=== PATIENT | male | born 1985 | race Caucasian/White ===

== ENCOUNTER 2022-10-05 10:54 | Outpatient (AMB) | payer OTHER, SELFPAY ==
--- NOTE | 2022-10-05 10:56 | MHC.OFFVIS ---
Intake Vital Signs 10/05/22 10:57 Height 5 ft 8 in Weight 189 lb 2 oz BMI 28.8 BP 138/92 H Blood Pressure Location Rt brachial Position Sitting Pulse 82 Pulse Source Pulse Oximeter Pulse Oximetry (%) 97 Oxygen Delivery Method Room Air Intake Visit Reasons: 1yr follow up - LVM Intake Note: Patient presents for 1 year follow up. Patient states It's my one year follow up, no issues to report Allergies No Known Allergies Allergy (Verified 10/05/22 10:59) Medication List - Last Reconciled 10/05/22 by PAWAN Quigley lamotrigine 100 mg PO BID 90 days HPI HPI Comments History of Present Illness Details 37-yr-old male presents for f/u visit. Pt denies any significant interval medical changes. Pt denies any interval seizure activity. He is complaint with lamictal- tolerating well. He did not have labs drawn. No vision difficulty, no diplopia, no rashes, no mood changes. He is still working at [employer] in [employer] w/out difficulty. ? [facility] Surgical History No pertinent past surgical history Family History Mother COPD (chronic obstructive pulmonary disease) Father No problems noted. Social History (Updated 10/05/22 @ 11:00 by KUSUM Andres) Household Members: Friend(s) Alcohol intake: current Alcohol intake frequency: holidays/special occasions only Patient Tobacco Use Status: Former Tobacco user Cigarette Packs Per Day: 25 Years Smoked: quit 2 months ago (July) Current occupational status: employed Current occupation: [employer] Review of Systems Const All systems reviewed & are unremarkable except as noted in HPI and below Physical Exam Vital Signs: Last Vital Signs Pulse 82 10/05/22 10:57 BP 138/92 H 10/05/22 10:57 Pulse Ox 97 10/05/22 10:57 Oxygen Delivery Method Room Air 10/05/22 10:57 BMI result Body Mass Index 28.8 Const General: cooperative and no acute distress Orientation/consciousness: patient oriented x3 HEENT Head: Yes normocephalic Resp Effort & Inspection: normal respiratory effort and able to speak in complete sentences Neuro General: patient oriented x3, gait normal and CN's II-XI intact bilaterally Cognition (Neuro): normal cognition Motor exam (neuro): 5/5 motor strength present throughout Psych Appearance: grossly normal Mental Status: mental status grossly normal Speech and movement: Normal speech and movement present Affect: normal affect Attitude: cooperative Assessment & Plan Assessment & Plan (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 Will check CBC, CMP, Lamotrigine level- pt will do at [facility] labs- lab slips given to pt. Previous AED trials- Depakote- caused significant weight gain. f/u in 1 yr or sooner prn Orders: Orders Comprehensive Met. Panel Today G40.B09 - Juvenile myoclonic epilepsy, not intractable, without status epilepticus Complete Blood Count Auto Diff Today G40.B09 - Juvenile myoclonic epilepsy, not intractable, without status epilepticus Lamotrigine Lamictal Today G40.B09 - Juvenile myoclonic epilepsy, not intractable, without status epilepticus Medications: Refilled lamotrigine 100 mg PO BID 180 tabs 3RF 90 days Coding Level of Care Code Est Pt Level 3 (02379) Diagnoses Juvenile myoclonic epilepsy G40.B09
[2022-10-05 10:57] VITALS: BP 138/92; PULSE 82; O2SAT 97; BMI 28.8
== END 2022-10-05 11:30 | disposition home or self-care (01) ==
PROVIDERS: Visit Provider Nurse Practitioner Family
DX: G40.B09 Juvenile myoclonic epilepsy, not intractable, without status epilepticus (principal)
CPT/HCPCS: 99213

== ENCOUNTER → 2022-10-05 10:54 | Outpatient (BNVA) | payer OTHER, SELFPAY | PROVIDERS: Visit Provider Nurse Practitioner Family | DX: G40.B09 Juvenile myoclonic epilepsy, not intractable, without status epilepticus (principal) ==

== ENCOUNTER 2023-10-08 10:54 | Outpatient (AMB) | payer OTHER, SELFPAY ==
--- NOTE | 2023-10-08 11:12 | A.OFFVIS_ITS ---
Vital Signs 10/08/23 11:17 Height 5 ft 7 in Weight 195 lb BMI 30.5 BP 124/92 H Blood Pressure Location Rt brachial Position Sitting Pulse 84 Pulse Source Pulse Oximeter Pulse Oximetry (%) 98 Oxygen Delivery Method Room Air Intake Visit Reasons: 1yr follow up-LVM Intake Note: Patient presents for follow up Allergies No Known Allergies Allergy (Verified 10/08/23 11:17) Medication List - Last Reconciled 10/08/23 by PAWAN Quigley amlodipine 2.5 mg PO DAILY lamotrigine 100 mg PO BID 90 days HPI Comments Details: 38-yr-old male presents for f/u visit of seizure. Pt denies any significant interval medical changes, though states PCP is following his LFTs as they have been elevated- he is scheduled for hepatic US. He is planning to increase physical exercise routine. He denies any interval seizure. He is compliant w/ Lamictal. Last BUN/Breaker Up Machine Operator- WNL. Pt is wondering if he should have a sleep study, as he has been having snoring, excessive daytime sleepiness. He can easily fall asleep when inactive. He is active at work, works in the [employer] department at [employer]. He typically sleeps 6.5-7 hrs on work days. [facility] Surgical History No pertinent past surgical history Family History Mother COPD (chronic obstructive pulmonary disease) Father No problems noted. Social History Household Members: Friend(s) Alcohol intake: current Alcohol intake frequency: holidays/special occasions only Patient Tobacco Use Status: Former Tobacco user Cigarette Packs Per Day: 25 Years Smoked: quit 2 months ago (July) Current occupational status: employed Current occupation: [employer] Physical Exam Vital Signs: Last Vital Signs Pulse 84 10/08/23 11:17 BP 124/92 H 10/08/23 11:17 Pulse Ox 98 10/08/23 11:17 Oxygen Delivery Method Room Air 10/08/23 11:17 BMI result Body Mass Index 30.5 Const General: cooperative and no acute distress Orientation/consciousness: patient oriented x3 HEENT Other: Mallampati stage IV Resp Effort & Inspection: normal respiratory effort and able to speak in complete sentences Neuro General: patient oriented x3 Cranial nerves: Yes CN's II-XII intact bilaterally Cognition (Neuro): normal cognition Psych Appearance: grossly normal Mental Status: mental status grossly normal Speech and movement: Normal speech and movement present Affect: normal affect Attitude: cooperative Assessment & Plan Assessment & Plan (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 Previous AED trials- Depakote- caused significant weight gain. Pt advised to undergo HST to assess for sleep apnea- will f/u upon review. f/u in clinic in 1 yr or sooner prn Orders: Orders RT home sleep study 10/08/23 G47.19 - Other hypersomnia, G47.9 - Sleep disorder, unspecified, R06.83 - Snoring Medications: Refilled lamotrigine 100 mg PO BID 90 days 180 tabs 3RF Coding Level of Care Code Est Pt Level 4 (13525) Diagnoses Juvenile myoclonic epilepsy G40.B09 Sleep difficulties G47.9 Snoring R06.83 Excessive daytime sleepiness G47.19 Tyler Sleepiness Scale Questions Sitting and reading: high chance of dozing Watching TV: high chance of dozing Sitting inactive in a theater, movie etc.: would never doze As a passenger in a car for an hour without break: high chance of dozing Lying down in the afternoon when circumstances permit: high chance of dozing Sitting and talking to someone: would never doze Sitting quietly after lunch without alcohol: high chance of dozing In a car, while stopped for a few minutes in the traffic: would never doze ESS < 10: normal, ESS > 12: pathologic: 15
[2023-10-08 11:17] VITALS: BP 124/92; PULSE 84; O2SAT 98; BMI 30.5
== END 2023-10-08 12:21 | disposition home or self-care (01) ==
PROVIDERS: PCP Internal Medicine; Visit Provider Nurse Practitioner Family
DX: G40.B09 Juvenile myoclonic epilepsy, not intractable, without status epilepticus (principal); G47.9 Sleep disorder, unspecified; R06.83 Snoring; G47.19 Other hypersomnia
CPT/HCPCS: 99214

== ENCOUNTER → 2023-10-08 10:54 | Outpatient (BNVA) | payer OTHER, SELFPAY | PROVIDERS: PCP Internal Medicine; Visit Provider Nurse Practitioner Family | DX: G40.B09 Juvenile myoclonic epilepsy, not intractable, without status epilepticus (principal) ==

== ENCOUNTER → 2023-11-22 09:46 | Outpatient (REF) | payer OTHER, SELFPAY | LOC: HO.SL 09:46 | PROVIDERS: PCP Internal Medicine; Visit Provider Nurse Practitioner Family | DX: G47.30 Sleep apnea, unspecified (principal); G47.19 Other hypersomnia; R06.83 Snoring; G47.9 Sleep disorder, unspecified | CPT/HCPCS: 95806 ==

== ENCOUNTER → 2023-11-22 09:58 | Outpatient (BNV) | payer OTHER, SELFPAY | PROVIDERS: PCP Internal Medicine; Visit Provider Psychiatry & Neurology Neurology | DX: G47.33 Obstructive sleep apnea (adult) (pediatric) (principal) | CPT/HCPCS: 95806 ==

== ENCOUNTER → 2024-01-09 20:30 | Outpatient (REF) | payer OTHER, SELFPAY | LOC: HO.SL 20:30 | PROVIDERS: PCP Internal Medicine; Visit Provider Nurse Practitioner Family | DX: G47.33 Obstructive sleep apnea (adult) (pediatric) (principal); G47.34 Idiopathic sleep related nonobstructive alveolar hypoventilation; G40.B09 Juvenile myoclonic epilepsy, not intractable, without status epilepticus | CPT/HCPCS: 95811 ==

== ENCOUNTER → 2024-01-09 22:23 | Outpatient (BNV) | payer OTHER, SELFPAY | PROVIDERS: PCP Internal Medicine; Visit Provider Psychiatry & Neurology Neurology | DX: G47.33 Obstructive sleep apnea (adult) (pediatric) (principal); G47.34 Idiopathic sleep related nonobstructive alveolar hypoventilation | CPT/HCPCS: 95811 ==

== ENCOUNTER 2024-04-21 09:52 | Outpatient (AMB) | payer OTHER, SELFPAY ==
--- NOTE | 2024-04-21 10:01 | MHC.OFFVIS ---
Vital Signs 04/21/24 10:02 Height 5 ft 7 in Weight 190 lb BMI 29.8 BP 140/90 H Blood Pressure Location Rt brachial Position Sitting Pulse 79 Pulse Source Pulse Oximeter Pulse Oximetry (%) 95 Oxygen Delivery Method Room Air Intake Visit Reasons: Follow Up Intake Note: Patient presents for follow up. Sleep study done on 11/22/23. [employer] U[employer] Required: No Accompanied by: Self / Same As Patient Allergies No Known Allergies Allergy (Verified 10/08/23 11:17) HPI Comments Details: 38-yr-old male presents for f/u visit of CPAP compliance. Last seizure activity was at 15 years old grand mal seizure, and second at 16.5, he woke up in the kitchen, he bit his tongue, fell down, no urinary incontenince, eyes rolled in the back of his head, and he seized for seconds to a min, then transported to the ED. His mom witnessed the seizure activity. Titration of CPAP completed in Dec 2023, pressures adjusted to [id number]. MAUREEN Compliance Report Feb 20, 2024- April 21, 2024 >4 hour 98% and 6 hours and 58 min Leaks median 22% pressures are [id number] AHI 4 He denies any seizure like activity. His BP is elevated and was started on Amlodipine 5mg PO daily. He feels more refreshed in the mornings, uses his small mouthed mask which he really likes. He denies any significant interval medical changes, though states PCP will f/u with his LFTs and hepatic US. He is compliant w/ Lamictal 100mg PO BID. Labs were repeated this week. 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 He works very long hours at [employer]. He doesn't smoke or drink, he quit smoking cold turkey and is doing well. Mood, memory and diet is good. He washes his mask, changes his filters, and fills reservoir with water as needed. [facility] Surgical History No pertinent past surgical history Family History Mother COPD (chronic obstructive pulmonary disease) Father No problems noted. Social History Household Members: Friend(s) Alcohol intake: current Alcohol intake frequency: holidays/special occasions only Patient Tobacco Use Status: Former Tobacco user Cigarette Packs Per Day: 25 Years Smoked: quit 2 months ago (July) Current occupational status: employed Current occupation: [employer] Physical Exam Vital Signs: Last Vital Signs Pulse 79 04/21/24 10:02 BP 140/90 H 04/21/24 10:02 Pulse Ox 95 04/21/24 10:02 Oxygen Delivery Method Room Air 04/21/24 10:02 BMI result Body Mass Index 29.8 Const General: cooperative and no acute distress Orientation/consciousness: patient oriented x3 HEENT Other: Mallampati stage IV Resp Effort & Inspection: normal respiratory effort and able to speak in complete sentences Neuro General: patient oriented x3 Cranial nerves: Yes CN's II-XII intact bilaterally Cognition (Neuro): normal cognition Psych Appearance: grossly normal Mental Status: mental status grossly normal Speech and movement: Normal speech and movement present Affect: normal affect Attitude: cooperative Results Reviewed Results Reviewed: MAUREEN Compliance Report Feb 20, 2024- April 21, 2024 >4 hour 98% and 6 hours and 58 min Leaks median 22% pressures are [id number] AHI 4 Assessment & Plan Assessment & Plan (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, not intractable, without status epilepticus Category: Medical Qualifiers: Intractability: intractable Status epilepticus: without status epilepticus Qualified Code(s): G40.B19 - Juvenile myoclonic epilepsy, intractable, without status epilepticus (2) Sleep difficulties: Code(s): G47.9 - Sleep disorder, unspecified Category: Medical (3) Snoring: Code(s): R06.83 - Snoring Category: Medical (4) Excessive daytime sleepiness: Code(s): G47.19 - Other hypersomnia Category: Medical (5) Nocturnal hypoxemia: Code(s): G47.34 - Idiopathic sleep related nonobstructive alveolar hypoventilation Category: Medical Plan Continue Lamotrigene 100mg bid. Previous AED trials- Depakote- caused significant weight gain. MAUREEN Compliance is stressed Eczema / plaque Psoriasis on Tremfya every other month. F/u in clinic for MAUREEN / Seizure disoder in 6 months Patient Instructions: Sleep in a dark room with temperatures below 68 degrees, no devices in bed, may read in bed, diffuse essential oils. F/U with labs / LFTS, and Renal as needed, ROMAN titers are elevated per labs on phone jarrett. Monitor BP at home, BP is elevated. The number one modifiable RF for CV events is good bp control. Coding Level of Care Code Est Pt Level 4 (14811) Diagnoses Intractable juvenile myoclonic epilepsy without status epilepticus G40.B19 Intractability: intractable Status epilepticus: without status epilepticus Sleep difficulties G47.9 Snoring R06.83 Excessive daytime sleepiness G47.19 Nocturnal hypoxemia G47.34 Time Spent (min) 30
[2024-04-21 10:02] VITALS: BP 140/90; PULSE 79; O2SAT 95; BMI 29.8
--- OUTSIDE RECORDS SUMMARY | 2024-04-21 10:52 | XMS_ITS | Encounter Summary ---
Author Organization [facility] Address [address] [address] Phone Care Team Providers Care Telecommunications Engineer Name Role Phone Thomas Canchola MD Primary Care Provider + [phone] Reason for Visit * Reason Comments Hypertension Hypercalcemia Encounter Details Date Type Department Care Team (Latest Contact Info) Description 03/27/2024 1:15 PM EST Office Visit [facility] [address] [address] Maddy Jain ARNP [address] [phone] Hypercalcemia (Primary Dx); Hypertension Social History Tobacco Use Types Packs/Day Years Used Date Smoking Tobacco: Former Cigarettes Smokeless Tobacco: Never Tobacco Cessation:Counseling Given: Not Answered Alcohol Use Standard Drinks/Week Comments Yes 0 (1 standard drink = 0.6 oz pur e alcohol) Sex and Gender Information Value Date Recorded Sex Assigned at Not on file Legal Sex Male 1:42 PM EDT Gender Identity Not on file Sexual Orientation Not on file documented as of this encounter Last Filed Vital Signs Vital Sign Reading Time Taken Comments Blood Pressure 126/80 03/27/2024 1:15 PM EST Pulse 76 03/27/2024 1:15 PM EST Temperature - - Respiratory Rate - - Oxygen Saturation - - Inhaled Oxygen Concentration - - Weight 89.3 kg (196 lb 12.8 oz) 03/27/2024 1:15 PM EST Height - - Body Mass Index - - documented in this encounter Patient Instructions * Patient Instructions* Maddy Jain ARNP - 03/27/2024 1:15 PM EST Blood pressure monitoring education: Monitor home blood pressure values after sitting for 5 minutes with back and arm support. Keep a log. Bring your log and blood pressure cuff to your next visit. documented in this encounter Progress Notes * Maddy Jain ARNP - 03/27/2024 1:15 PM EST Images from the original note were not included. Patient Name: Juan C Mccray, Male Date of : 1985, 38 y.o. Date: 03/27/2024 History of Present Illness Mr. / Ms. Juan C Mccrya is a 38-year-old male with past medical history of seizure dx here for follow up for high blood pressure management. Home BP ranging 130-150/80s-90s, checked manually by a family member who is a nurse. Past Medical History Past Medical History: Diagnosis Date Epilepsy (HCC) Essential hypertension Past Surgical History History reviewed. No pertinent surgical history. Family History Family History Problem Relation Age of Onset Kidney disease Mother Social History Social History Tobacco Use Smoking status: Former Types: Cigarettes Smokeless tobacco: Never Substance Use Topics Alcohol use: Yes Review of Systems Constitutional: Negative for chills, fever, weight gain and weight loss. HENT: Negative for congestion and hearing loss. Eyes: Negative for blurred vision and impaired. Respiratory: Negative for cough and shortness of breath. Cardiovascular: Negative for chest pain and leg swelling. Gastrointestinal: Negative for abdominal pain, diarrhea, nausea, vomiting and poor appetite. Genitourinary: Negative for dysuria, flank pain, hematuria and urgency. Musculoskeletal: Negative. Skin: Negative for rash. Neurological: Positive for seizures. Negative for dizziness and headaches. Controlled on anti-seizure medication Psychiatric/Behavioral: Negative. Medication List Current Outpatient Medications Medication Sig Dispense Refill amLODIPine (NORVASC) 5 MG tablet Take 1 tablet (5 mg total) by mouth 1 (one) time each day 90 tablet 3 lamoTRIgine (LaMICtal) 100 MG tablet Take 100 mg by mouth in the morning and 100 mg in the evening. No current facility-administered medications for this visit. Allergy List No Known Allergies Physical Exam BP 126/80 Pulse 76 Wt 196 lb 12.8 oz (89.3 kg) Vitals reviewed. Constitutional: He is oriented to person, place, and time. He does not appear ill. No distress. HEENT: Mouth/Throat: Oropharynx is clear and moist. Eyes: Conjunctivae are normal. Neck: No JVD present. Cardiovascular: Normal rate and regular rhythm. No murmur heard.He exhibits no edema. Pulmonary/Chest: Effort normal and breath sounds normal. Abdominal: Soft. Bowel sounds are normal. Neurological: He is alert and oriented to person, place, and time. Skin: Skin is warm and dry. Psychiatric: He has a normal mood and affect. His behavior is normal. Judgment normal. Labs Chemistry Lab Units 01/17/24 1503 07/26/23 0000 10/16/22 1639 CREATININE mg/dL 0.82 0.96 0.9 BUN mg/dL 16 17 14 POTASSIUM mmol/L 5.1 4.5 4.6 SODIUM mmol/L 140 140 138 CO2 mmol/L 24 24 27 CHLORIDE mmol/L 101 -- 100 ALBUMIN g/dL 4.8 -- 4.9* EGFRNAFR -- 104 110 EGFR mL/min/1.73 115 -- -- HEMATOCRIT -- 45.2 -- HEMOGLOBIN -- 15.2 -- PLATELETS AUTO 10*3/UL -- 275 -- Bone Mineral Lab Units 01/17/24 1503 07/26/23 0000 01/12/23 1410 10/16/22 1639 CALCIUM mg/dL 9.8 10.0 -- 10.4 PHOSPHORUS mg/dL 3.7 -- -- 4.2 PTH pg/mL 50 -- 46 45 VITAMIN D NG/ML -- -- -- 24.9 Urine Lab Units 01/17/24 1503 07/26/23 0000 PROTEIN UR mg/dL 15.4 Negative Assessment & Plan 1. Hypercalcemia 2. Hypertension # HTN Blood pressure is sub-optimally controlled Increase Amlodipine from 2.5 mg to 5 mg QD Continue monitoring home BP and bring in reads to next visit Negative work-up for secondary causes of HTN No Edema Normal Renal function No proteinuria Low salt diet Avoid NSAIDs/Decongestant medication #Hypercalcemia Calcium WNL at 9.8 as of 01/17/2024 PTH remains WNL, 50 Calcium 10.4 10/16/22 ROMAN and Immunofixation WNL 11/14/2004 Vit D 1-25 WNL in the past PTH was not suppressed 45 10/16/22 Ionized calcium was normal 1.3 10/16/22 Hep B core ag, Hep C ab, HIV and RPR negative 03/29/2006 Urine alb/creatinine ratio WNL 06/29/22 Patient was not seen by Endocrinology for evaluation and management of suspected primary hyperPTH Orders Placed This Encounter amLODIPine (NORVASC) 5 MG tablet Return in about 3 months (around 06/24/2024) for Next scheduled follow-up with Rain for BP check. MILVIA Ledezma Cosigned by Vance Corbett MD at 03/27/2024 3:01 PM EST documented in this encounter Plan of Treatment Upcoming Encounters Date Type Department Care Team (Late st Contact Info) Description 06/26/2024 10:15 AM EDT Office Visit [facility] P.. [address] [address] Maddy Jain ARNP [address] [phone] documented as of this encounter Visit Diagnoses Diagnosis Hypercalcemia- Primary Hypertension documented in this encounter Care Teams Telecommunications Engineer Relationship Specialty Start Date End Date Thomas Canchola MD [address] [place] [address] PCP - General Internal Medicine 01/10/24 documented as of this encounter
--- OUTSIDE RECORDS SUMMARY | 2024-04-21 10:52 | XMS_ITS | Clinical Summary ---
Author Organization [facility] Address [address] [address] Phone Care Team Providers Care Proposition Player Name Role Phone Thomas Canchola MD Primary Care Provider + [phone] Allergies No known active allergies Medications lamoTRIgine (LaMICtal) 100 MG tablet Take 100 mg by mouth in the morning and 100 mg in the evening. Active amLODIPine (NORVASC) 5 MG tabletIndicatio ns:Hypertension Take 1 tablet (5 mg total) by mouth 1 (one) time each day 90 tablet 3 5 03/27/19 26 Active amLODIPine (NORVASC) 2.5 MG tabletIndicatio ns:Hypertension Take 1 tablet (2.5 mg total) by mouth 1 (one) time each day 30 tablet 11 4 03/27/19 25 Discontinu ed(Reorder (does not appear on AVS)) Active Problems Problem Noted Date Diagnosed Date Hypercalcemia 10/08/2022 Hypertension 10/08/2022 Encounters Date Type Department Care Team Description 03/27/2024 1:15 PM EST Office Visit [facility]. [address] [phone] Maddy Jain ARNP Hypercalcemia (Primary Dx); Hypertension from Last 3 Months Family History Medical History Relation Comments Kidney disease Mother Relation Status Comments Mother Social History Tobacco Use Types Packs/Day Years [...] on file Sexual Orientation Not on file Last Filed Vital Signs Vital Sign Reading Time Taken Comments Blood Pressure 126/80 03/27/2024 1:15 PM EST Pulse 76 03/27/2024 1:15 PM EST Temperature - - Respiratory Rate - - Oxygen Saturation 98% 01/10/2024 1:15 PM EST Inhaled Oxygen Concentration - - Weight 89.3 kg (196 lb 12.8 oz) 03/27/2024 1:15 PM EST Height - - Body Mass Index - - Plan of Treatment Upcoming Encounters Date Type Department Care Team ([facility] st Contact Info) Description 06/26/2024 10:15 AM EDT Office Visit [facility] [address] [phone] Maddy Jain ARNP [address] [place] [phone] Health Maintenance Due Date Last Done Comments Pneumococcal Vaccine: Pediat rics (0 to 5 Years) and At-Risk Patients (6 to 64 Years) (1 of 2 - PCV) 09/17/1991 Hepatitis B Vaccine (1 of 3 - 19+ 3-dose series) 09/16 Influenza Vaccine (#1) 2023 Insurance AETNA MEDICARE AETNA MEDICARE Care Teams Proposition Player Relationship Specialty Start Date End Date Thomas Canchola MD [address] [place] [address] PCP - General Internal Medicine 01/10/24
--- OUTSIDE RECORDS SUMMARY | 2024-04-21 10:52 | XMS_ITS | Clinical Summary ---
Author Organization [facility] Address [address] [id number] Care Team Providers Care Woodenware Assembler Name Role Phone Thomas Canchola MD Primary Care Provider [phone] Allergies No known active allergies Medications Medication Sig Dispensed Refills Start Date End Date Status lamoTRIgine (LaMICtal) 100 MG tablet 0 06/21/2021 Active tacrolimus (PROTOPIC) 0.1 % ointment 0 07/04/2021 Active triamcinolone (KENALOG) 0.1 % cream 0 06/28/2021 Active Active Problems Problem Noted Date Diagnosed Date Leukocytosis 07/21/2021 Tobacco use 07/21/2021 Social History Tobacco Use Types Packs/Day Years Used Date Smoking Tobacco: Every Day Cigarettes 1 Smokeless Tobacco: Never Alcohol Use Standard Drinks/Week Comments Yes 0 (1 standard drink = 0.6 oz pur e alcohol) rare Sex and Gender Information Value Date Recorded Sex Assigned at Not on file Gender Identity Not on file Sexual Orientation Not on file Job Start Date Occupation Industry Not on file Not on file Not on file Last Filed Vital Signs Vital Sign Reading Time Taken Comments Blood Pressure 134/91 07/21/2021 1:27 PM EDT Pulse 90 07/21/2021 1:27 PM EDT Temperature 37 ??C (98.6 ??F) 07/21/2021 1:27 PM EDT Respiratory Rate - - Oxygen Saturation 98% 07/21/2021 1:27 PM EDT Inhaled Oxygen Concentration - - Weight 80.8 kg (178 lb 3.2 oz) 07/21/2021 1:27 P M EDT Height 170.2 cm (5' 7 ) 07/21/2021 1:27 PM EDT Body Mass Index 27.91 07/21/2021 1:27 PM EDT Plan of Treatment Health Maintenance Due Date Last Done Comments Hepatitis B Vaccines (1 of 3 - 3-dose series) 1985 Hepatitis C Screening 1985 COVID-19 Vaccine (#1) 1990 Pneumococcal Vaccine (1 of 2 - PCV) 09/17/1991 Depression Screening 1997 Preventative Health Evaluation 09/17/2003 DTap / Tdap / Td (1 - Tdap) 2004 Influenza Vaccine (#1) 2023 RSV Ped < 20 months Aged Out No longe r eligible based on patient's age to complete this topic Care Teams Woodenware Assembler Relationship Specialty Start Date End Date Thomas Canchola MD [address] [address] PCP - General Internal Medicine 06/16/21
== END 2024-04-21 11:39 | disposition home or self-care (01) ==
PROVIDERS: PCP Internal Medicine; Visit Provider Physician Assistant Medical
DX: G40.B19 Juvenile myoclonic epilepsy, intractable, without status epilepticus (principal); G47.9 Sleep disorder, unspecified; R06.83 Snoring; G47.19 Other hypersomnia; G47.34 Idiopathic sleep related nonobstructive alveolar hypoventilation
CPT/HCPCS: 99214

== ENCOUNTER 2024-09-29 08:50 | Outpatient (AMB) | payer OTHER, SELFPAY ==
--- OUTSIDE RECORDS SUMMARY | 2024-09-29 09:07 | XMS_ITS | Clinical Summary ---
Author Organization [facility] Address [address] [id number] Care Team Providers Care Voice Writing Reporter Name Role Phone Thomas Canchola MD Primary Care Provider [phone] Allergies No known active allergies Medications Medication [...] 90 07/21/2021 1:27 PM EDT Temperature 37 C (98.6 F) 07/21/2021 1:27 PM EDT Respiratory Rate - [...] (1 - Tdap) 2004 Influenza Vaccine (#1) 2024 RSV Ped < 20 months Aged Out No longe r eligible based on patient's age to complete this topic Care Teams Voice Writing Reporter Relationship Specialty Start Date End Date Thomas Canchola MD [address] [facility] [address] [place] [address] PCP - General Internal Medicine 06/16/21
[2024-09-29 09:10] VITALS: BP 140/90; PULSE 84; O2SAT 97; BMI 31.5
--- NOTE | 2024-09-29 09:10 | MHC.OFFVIS ---
Vital Signs 09/29/24 09:10 Height 5 ft 7 in Weight 201 lb BMI 31.5 BP 140/90 H Blood Pressure Location Rt brachial Position Sitting Pulse 84 Pulse Source Pulse Oximeter Pulse Oximetry (%) 97 Oxygen Delivery Method Room Air Intake Visit Reasons: 1yr Follow Up Intake Note: Patient presents for follow up Vp Product Management Required: No Accompanied by: Self / Same As Patient Allergies No Known Allergies Allergy (Verified 09/29/24 09:10) Medication List - Last Reconciled 09/29/24 by PAWAN Quigley amlodipine 5 mg PO DAILY amlodipine 10 mg PO DAILY lamotrigine 100 mg PO BID 90 days losartan 25 mg PO DAILY HPI Comments Details: 39-yr-old male presents for f/u visit of seizure and severe MAUREEN. Patient reports that since the last visit, he has been started on losartan to help him better manage his blood pressure. Generally, he avoids salt-added salt intake. He is physically active at work, continues to work in the [employer]. However, they deny structured physical activity outside of work. He denies interval seizure activity. He states he is compliant with lamotrigine, but today notes that he has been taking his lamotrigine as 200 mg q.a.m. rather than 100 mg b.i.d., and he has been doing this for years. He wonders if this is okay, and also if he can adjust the lamotrigine to 200 mg tab. He states he is due to have labs with his PCP next week. Patient reports she is sleeping well with his CPAP.? He feels more refreshed during the day. ?He states he has enough CPAP supplies and is cleaning his CPAP supplies regularly.? He is using distilled water with his CPAP water reservoir. 11/22/2023, HST results c/w severe obstructive sleep apnea with nocturnal hypoxemia with AHI 67 per hour, O2 bandar 75%, SpO2 under 88% times 42 minutes, and average SpO2 92%. Snoring was noted for 12% of the study time. 01/09/2024, follow-up in-lab PAP titration study, showed stabilization of breathing and oxygenation at CPAP 11 cm H2O. CPAP information: Respiratory company: [facility] [employer] Serial number [id number] Compliance report data: 90-day compliance report 06/23/24-09/20/24 CPAP 12 cm H2O with EPR 3 Overall usage 97% Usage greater than 4 hours: 94% Average usage days used 6 hours and 31 minutes Median leaks 11.2 L/min Average AHI 2.5 per hour [facility] Surgical History No pertinent past surgical history Family History Mother COPD (chronic obstructive pulmonary disease) Father No problems noted. Social History Household Members: Friend(s) Alcohol intake: current Alcohol intake frequency: holidays/special occasions only Patient Tobacco Use Status: Former Tobacco user Cigarette Packs Per Day: 25 Years Smoked: quit 2 months ago (July) Current occupational status: employed Current occupation: [employer] Physical Exam Vital Signs: Last Vital Signs Pulse 84 09/29/24 09:10 BP 140/90 H 09/29/24 09:10 Pulse Ox 97 09/29/24 09:10 Oxygen Delivery Method Room Air 09/29/24 09:10 BMI result Body Mass Index 31.5 Const General: cooperative and no acute distress Orientation/consciousness: patient oriented x3 HEENT Other: Mallampati stage IV Resp Effort & Inspection: normal respiratory effort and able to speak in complete sentences Neuro General: patient oriented x3 Cranial nerves: Yes CN's II-XII intact bilaterally Cognition (Neuro): normal cognition Psych Appearance: grossly normal Mental Status: mental status grossly normal Speech and movement: Normal speech and movement present Affect: normal affect Attitude: cooperative Assessment & Plan Assessment & Plan (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, not intractable, without status epilepticus Category: Medical Qualifiers: Intractability: intractable Status epilepticus: without status epilepticus Qualified Code(s): G40.B19 - Juvenile myoclonic epilepsy, intractable, without status epilepticus (2) Severe obstructive sleep apnea: Code(s): G47.33 - Obstructive sleep apnea (adult) (pediatric) Category: Medical (3) Nocturnal hypoxemia: Code(s): G47.34 - Idiopathic sleep related nonobstructive alveolar hypoventilation Category: Medical Plan For seizure disorder: We will adjust Lamotrigene from 100mg twice a day to 200 mg daily, as this is how patient has been taking it for years, without breakthrough seizure activity. Check fasting CBC, CMP, lamotrigine level-order slip given to patient, may do these with upcoming labs for PCP. Previous AED trials- Depakote- caused significant weight gain. Continue CPAP 12 cmH2O w/ EPR 3 nightly > 4 hours, as pt continues to have good clinical effect from use. Discussed that continuing to treat his severe MAUREEN symptoms is also beneficial for his hypertension management. Encouraged patient to consider structured physical exercise outside of his work environment. Clean CPAP machine and supplies routinely. Change CPAP supplies routinely. Use distilled water in CPAP water reservoir. Pt to contact us or respiratory company with any questions or concerns. Pt advised to undergo HST to assess for sleep apnea- will f/u upon review. f/u in clinic in 1 yr or sooner prn Orders: Orders Complete Blood Count Auto Diff Today G40.B19 - Juvenile myoclonic epilepsy, intractable, without status epilepticus Comprehensive [place]. 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
== END 2024-09-29 09:44 | disposition home or self-care (01) ==
LOC: HO.HSMS 08:50
PROVIDERS: PCP Internal Medicine; Visit Provider Nurse Practitioner Family
DX: G40.B19 Juvenile myoclonic epilepsy, intractable, without status epilepticus (principal); G47.33 Obstructive sleep apnea (adult) (pediatric); G47.34 Idiopathic sleep related nonobstructive alveolar hypoventilation
CPT/HCPCS: 99214